=== PATIENT | female | born 1945 | race Caucasian/White ===

== ENCOUNTER → 2017-07-21 | Outpatient (CLI) | payer MEDICARE ==
[~2017-07-21] MED LIST: ALL100 PO; ALLO-119 PO; AMLO-99 PO; ASCO100T PO; ASP325 PO; ASPI-757 PO; ATE50 PO; ATOR40TA24 PO; ATR10 PO; CALC600T63 PO; CALC600T72 PO; CHLOR25 PO; CLON-392 PO; CLON1 PO; DILT360C26 PO; FUR40 PO; GAB100 PO; GAB300 PO; GABA-549 PO; HUMALOG SC; INSU100C12 SQ; INSU100V24 SQ; INSU100V26 SC; INSU300I SUBQ; LISI20TA29 PO; METF-1 PO; METF-420 PO; MULT-865 PO; MULT1CAP41 PO; OCU PO; PER PO; PRA20 PO; PRAV20TA65 PO; QUIN40TA24 PO; SIMV-44 PO; VIT-7 PO; VITA-134 PO; VITA150T2 PO
--- NOTE | 2017-07-24 08:23 | RADIOLOGY IMAGING REPORT ---
FACILITY: [facility] PATIENT NAME: YUNG BATEMAN : [id number] MR: [id number] V: [id number] EXAM DATE: [id number] ORDERING PHYSICIAN: JONATHAN WALKER TECHNOLOGIST: Riya Crum PROCEDURE:BILATERAL DIGITAL SCREENING MAMMOGRAM WITH CAD ASSISTED INTERPRETATION AND 3D BREAST TOMOSYNTHESIS. COMPARISON:Prior mammograms dated 07/08/16, 07/07/15, , 07/02/13, 06/27/12 and 07/26/10 INDICATIONS:SCREENING FINDINGS: A small to moderate amount of mildly heterogeneous fibroglandular tissue is seen throughout the breasts. The parenchymal pattern has remained stable when allowing for difference in mammographic technique and patient positioning. There is no evidence of malignant appearing mass, malignant appearing calcification or other secondary sign of malignancy in either breast. DIAGNOSTIC CATEGORY 2--BENIGN FINDING. RECOMMENDATIONS: ROUTINE MAMMOGRAM AND CLINICAL EVALUATION. IMPRESSION: BI-RADS 2: No significant abnormality seen. Images were reviewed with R2CAD and 3D breast tomosynthesis. Dictated by: Dona Leon M.D. on 07/21/2017 at 10:11 Transcribed by: CYDNEY on 07/21/2017 at 15:47 Approved by: Dona Leon M.D. on 07/24/2017 at 8:22 [facility]
== END ==
LOC: MAMO 03:00
PROVIDERS: ATTEND Emergency Medicine
DX: Z12.31 Encounter for screening mammogram for malignant neoplasm of breast (principal)
CPT/HCPCS: 77063; 77067

== ENCOUNTER → 2017-07-26 | Outpatient (CLI) | payer MEDICARE ==
[~2017-07-26] MED LIST changes: +INSU200I SUBQ
--- NOTE | 2017-07-26 09:38 | RADIOLOGY IMAGING REPORT ---
FACILITY: [facility] [place] PATIENT NAME: Christy Gardner : 1945 MR: [id number] V: [id number] EXAM DATE: ORDERING PHYSICIAN: JONATHAN WALKER TECHNOLOGIST: Location: [facility] Patient: Christy Gardner : 1945 Visit/Account:[id number] Date of Sevice: 07/26/2017 DEXA Scan Clinical history: Postmenopausal. Comparison: None available. LUMBAR SPINE: The bone mineral density (BMD) measured from L1-L4 correlates with a Z-score 3.9 and a T-score of 3.1 which is Normal as defined by the World Health Organization. The corresponding risk of fracture in the lumbar spine is Not increased compared with a young adult reference population. HIP: Bone mineral density (BMD) measured in the Left total hip region correlates with a Z-score 0.9 and a T-score of -0.1 which is Normal as defined by the World Health Organization. The corresponding risk of fracture in the hip is Not increased compared with a young adult reference population. T score l eft femoral neck 1.8 Bone mineral density (BMD) measured in the Femoral Neck region measures 1.292 g/cm2. Left forearm: The bone mineral density measured in the midshaft of the radius is consistent with a Z score of 0.3 a nd a T score of -1.7 which is consistent with osteopenia as defined by the World Health Organization. The corresponding risk of fracture in the left forearm is 3-4 times increased. Impression: 1. Lumbar spine: Normal. 2. Left Hip: Normal. 3. Femoral Neck: Bone Mineral Density is 1.292 g/cm2 4. Left forearm: Osteopenia The next DEXA scan of this patient should include the following sites: L1-L4 and the left hip. FRAX? WHO Fracture Risk Assessment Tool link: <http://www.shef.ac.uk/FRAX/tool.jsp?locationValue=9> PLEASE NOTE: 1) The World Health Organization defines low BMD as follows: T-score Normal > -1 Osteopenia < -1 and > -2.5 Osteoporosis < -2.5 without fractures Established osteoporosis < -2.5 with fractures 2) In general, you may wish to consider: Diagnosis Treatment Follow-up DEXA Normal BMD Prevention 2-3 years Osteopenia Prevention/therapy 1-2 years Osteoporosis Therapy Yearly 3) Fracture risk estimated from the T-score is more accurate for vertebral fractures (often spontane ous) than for hip fractures. Report Dictated By: Dona Leon MD at 07/26/2017 9:33 AM Report E-Signed By: Dona Leon MD at 07/26/2017 9:35 AM MIKKIN:AMICIVN
== END ==
LOC: RAD 01:36
PROVIDERS: ATTEND Emergency Medicine
DX: M85.832 Other specified disorders of bone density and structure, left forearm (principal); Z78.0 Asymptomatic menopausal state
CPT/HCPCS: 77080

== ENCOUNTER → 2017-10-16 | Outpatient (CLI) | payer MEDICARE ==
[2017-10-16 08:54] LABS: PLATELET COUNT, AUTOMATED 213 K/uL (150-450)
[2017-10-16 09:13] LABS: LDL CHOLESTEROL 36 mg/dl
== END ==
LOC: LAB 08:36
PROVIDERS: ATTEND Emergency Medicine
DX: E11.9 Type 2 diabetes mellitus without complications (principal)
CPT/HCPCS: 36415; 82040; 82247; 82310; 82374; 82435; 82465; 82565; 82947; 83036; 83718; 84075; 84132; 84155; 84295; 84450; 84460; 84478; 84520; 85025

== ENCOUNTER → 2018-04-20 | Outpatient (CLI) | payer MEDICARE ==
[~2018-04-20] MED LIST changes: +AMLO-113 PO; -AMLO-99 PO; +METF-452 PO
== END ==
LOC: LAB 09:13
PROVIDERS: ATTEND Emergency Medicine
DX: E11.9 Type 2 diabetes mellitus without complications (principal)
CPT/HCPCS: 36415; 83036

== ENCOUNTER → 2018-04-25 | Outpatient (CLI) | payer MEDICARE ==
[~2018-04-25] MED LIST changes: +DULA0.75 SC; +PNEI IM
== END ==
LOC: LAB 09:38
PROVIDERS: ATTEND Emergency Medicine
DX: G62.9 Polyneuropathy, unspecified (principal); M85.80 Other specified disorders of bone density and structure, unspecified site
CPT/HCPCS: 36415; 82306; 82607; 83970

== ENCOUNTER → 2018-07-20 | Outpatient (CLI) | payer MEDICARE ==
[~2018-07-20] MED LIST changes: -AMLO-113 PO; +AMLO-127 PO; +CYAN500T38 PO
== END ==
LOC: LAB 09:15
PROVIDERS: ATTEND Emergency Medicine
DX: G62.9 Polyneuropathy, unspecified (principal); E11.9 Type 2 diabetes mellitus without complications
CPT/HCPCS: 36415; 82607; 83036

== ENCOUNTER → 2018-08-10 | Outpatient (CLI) | payer MEDICARE ==
--- NOTE | 2018-08-13 18:04 | RADIOLOGY IMAGING REPORT ---
FACILITY: [facility] PATIENT NAME: YUNG BATEMAN : [id number] MR: [id number] V: [id number] EXAM DATE: ORDERING PHYSICIAN: JONATHAN WALKER TECHNOLOGIST: Riya Crum PROCEDURE:BILATERAL DIGITAL SCREENING MAMMOGRAM WITH CAD ASSISTED INTERPRETATION COMPARISON:Prior mammograms 07/21/17, 07/08/16, 07/07/15, 07/04/14, 07/02/13, 06/27/12. INDICATIONS:SCREENING FINDINGS: There are scattered of fibroglandular density in both breast. The parenchymal pattern has remained stable allowing for difference in mammographic technique & patient positioning. DIAGNOSTIC CATEGORY 1--NEGATIVE. RECOMMENDATIONS: ROUTINE MAMMOGRAM AND CLINICAL EVALUATION. IMPRESSION: BIRADS 1: Negative. No significant abnormality is seen. Dictated by: Dona Leon M.D. on 08/10/2018 at 14:28 Transcribed by: MARINA on 08/11/2018 at 12:17 Approved by: Dona Leon M.D. on 08/13/2018 at 18:03 [facility]
== END ==
LOC: MAMO 03:12
PROVIDERS: ATTEND Emergency Medicine
DX: Z12.31 Encounter for screening mammogram for malignant neoplasm of breast (principal)
CPT/HCPCS: 77067

== ENCOUNTER → 2018-08-15 | Outpatient (CLI) | payer MEDICARE ==
[~2018-08-15] MED LIST changes: +SULF-198 PO
[2018-08-15 08:58] LABS: PLATELET COUNT, AUTOMATED 212 K/uL (150-450)
--- NOTE | 2018-08-15 09:14 | EKG ---
FAC[place] [facility] [place] PATIENT NAME: YUNG BATEMAN : [id number] MR: [id number] V: [id number] EXAM DATE: ORDERING PHYSICIAN: TASHA CARVALHO TECHNOLOGIST: MARCI Test Reason : PRE OP Blood Pressure : / mmHG Vent. Rate : 092 BPM Atrial Rate : 092 BPM P-R Int : 202 ms QRS Dur : 068 ms QT Int : 352 ms P-R-T Axes : 110 037 022 degrees QTc Int : 435 ms Sinus rhythm Artifact in multiple leads - recommend repeat EKG Abnormal ECG No previous ECGs available Confirmed by WALESKA CASTANO ([id number]) on 08/15/2018 5:24:45 PM Referred By: MAIA Confirmed By:WALESKA CASTANO
== END ==
LOC: LAB 08:41
PROVIDERS: ATTEND Orthopaedic Surgery
DX: Z01.812 Encounter for preprocedural laboratory examination (principal); Z01.810 Encounter for preprocedural cardiovascular examination; R94.31 Abnormal electrocardiogram [ECG] [EKG]; I10 Essential (primary) hypertension; E78.5 Hyperlipidemia, unspecified; M10.9 Gout, unspecified; E11.9 Type 2 diabetes mellitus without complications
CPT/HCPCS: 36415; 81001; 82040; 82247; 82310; 82374; 82435; 82565; 82947; 84075; 84132; 84155; 84295; 84450; 84460; 84520; 85025; 87088; 93005

== ENCOUNTER → 2018-08-20 | Outpatient (CLI) | payer MEDICARE ==
[~2018-08-20] MED LIST changes: +ASPI81TA94 PO
== END ==
LOC: LAB 10:03
PROVIDERS: ATTEND Emergency Medicine
DX: N39.0 Urinary tract infection, site not specified (principal); R82.998 Other abnormal findings in urine
CPT/HCPCS: 87088

== ENCOUNTER → 2018-08-21 | Outpatient (REF) | payer MEDICARE | LOC: ZZPBJ 12:42 | PROVIDERS: ATTEND Anesthesiology | DX: Z01.812 Encounter for preprocedural laboratory examination (principal); M16.12 Unilateral primary osteoarthritis, left hip | CPT/HCPCS: 81001 ==

== ENCOUNTER 2018-08-28 03:53 | Inpatient (IN) | payer MEDICARE ==
--- NOTE | 2018-08-27 10:13 | LEVENE H&P ---
DATE OF ADMISSION: August 28, 2018 IDENTIFICATION/CHIEF COMPLAINT Patient is a 72--year-old with a chief complaint of left hip pain. HISTORY OF PRESENT ILLNESS Patient has a longstanding history of hip arthritis progressively painful and debilitating and refractor to conservative care. Surgery is indicated to relieve pain after failure of nonoperative measures. PAST MEDICAL HISTORY 1. Hypertension. 2. Type 2 diabetes. 3. Arthritis. 4. Back problems. PAST SURGICAL HISTORY Back operation. FAMILY HISTORY Father and mother with cardiac and diabetes issues. SOCIAL HISTORY Negative for tobacco and alcohol use. REVIEW OF SYSTEMS Negative. CURRENT MEDICATIONS 1. Atorvastatin 40 mg p.o. q.d. 2. Allopurinol 300 mg p.o. q.d. 3. Lisinopril 20 mg p.o. q.d. 4. Chlorthalidone 25 mg p.o. q.d. 5. Clonidine 0.1 mg p.o. b.i.d. 6. Gabapentin 300 mg p.o. q.d. 7. Amlodipine 10 mg p.o. q.d. 8. Metformin 1000 mg p.o. b.i.d. 9. Variety of vitamins and baby aspirin a day. 10. Occasionally, she also requires insulin to manage blood sugar. ALLERGIES She denies any drug allergies. PHYSICAL EXAMINATION GENERAL: This is a healthy female. HEENT: Normocephalic, atraumatic. NECK: Supple. LUNGS: Clear. HEART: Regular ABDOMEN: Soft. ORTHOPEDIC EXAMINATION Hips is stiff with limits of rotation in flexion. She has pain with combined flexion and rotation. Hip girdle strength is normal. Skin envelope is intact. Calves are nontender. Neurovascularly intact. Radiographs demonstrate end- stage arthritis. ASSESSMENT Left hip degenerative joint disease, refractory to conservative care. PLAN Per patient request, we will proceed with total hip arthroplasty. The nature of the procedure, risks, benefits and anticipated rehab course were outlined. Risks include, but are not limited to, , major medical or anesthetic complication, infection, neurovascular injury, blood transfusion, stiffness, scarring, fracture, tendon rupture, instability, leg length discrepancy, implant loosening, migration or failure, persistent or recurrent pain or symptoms, need for additional surgery and other unforeseen. She understands and wishes to proceed. A signed permit is placed in the chart. No guarantees are given or implied. [facility]
[2018-08-27 14:51] LABS: INR 1.02
[~2018-08-28] VITALS: Ht 170.2 cm; Wt 86.2 kg
[2018-08-28] MEDS ORDERED: VANCOMYCIN 1 GM VIAL ONE (06:49)
[2018-08-28 10:50] VITALS: BP 151/76
[2018-08-28] MEDS ORDERED: ceFAZolin(*) 2GM/D5W 50ML 50 ML IVPB ONE (11:15)
[2018-08-28] MEDS ORDERED: FAMOTIDINE 20 MG TAB PO ONE (11:15)
[2018-08-28] MEDS ORDERED: ROPIVACAINE/EPI/CLONIDINE/KET 50 ML SYRINGE INJ ONE (11:15)
[2018-08-28] MEDS ORDERED: ACETAMINOPHEN 500 MG TAB PO ONE (11:15)
[2018-08-28] MEDS ORDERED: CELECOXIB 200 MG CAP PO ONE (11:15)
[2018-08-28] MEDS ORDERED: TRANEXAMIC AC 1000 MG/10ML SDV 1,000 MG in DEXTROSE 5% 50 ML BAG 50 ML IV ONE (11:15)
[2018-08-28] MEDS ORDERED: NORMOSOL R SOLN(*) 1000 ML BAG 1,000 ML IV PRN ×2 (11:15→18:45)
[2018-08-28] MEDS ORDERED: LIDOCAINE/SOD BICARB 8.4% SYR ID ONE (11:15)
[2018-08-28] MEDS ORDERED: MIDAZOLAM 2 MG/2 ML VIAL IVP PRN (11:15)
[2018-08-28] MEDS ORDERED: NS 0.9% 3000 ML IRRIGATION BAG IR ONE (16:07)
[2018-08-28] MEDS ORDERED: MEPERIDINE HCL 50 MG/ML SDV 50 MG/ML VIAL ONE (17:56)
[2018-08-28 18:25] VITALS: BP 145/82
--- NOTE | 2018-08-28 18:28 | RADIOLOGY IMAGING REPORT ---
FACILITY: [facility] PATIENT NAME: Christy Gardner : 1945 MR: [id number] V: [id number] EXAM DATE: ORDERING PHYSICIAN: TASHA CARVALHO TECHNOLOGIST: Location: [facility] [place] Patient: Christy Gardner : 1945 Visit/Account:[id number] Date of Sevice: 08/28/2018 PELVIS History: Postop left hip replacement. Comparison study: None. Findings: There has been placement of a left hip prosthesis. Subcutaneous and intra-articular air a s well as surgical skin clips represent changes of recent surgery. There is no fracture the pelvis. There is osteoarthrosis of the right hip. IMPRESSION: Post recent left total hip replacement. 2. Osteoarthrosis of the right hip. Report Dictated By: Horace Rowe MD at 08/28/2018 6:22 PM Report E-Signed By: Horace Rowe MD at 08/28/2018 6:23 PM WSN:[email or web address]
[2018-08-28] MEDS ORDERED: PROMETHAZINE 25 MG/ML 1 ML AMP IVP PRN (18:45)
[2018-08-28] MEDS ORDERED: ZOLPIDEM TARTRATE 5 MG TAB PO PRN (18:45)
[2018-08-28] MEDS ORDERED: BISACODYL 10 MG SUPP PR PRN (18:45)
[2018-08-28] MEDS ORDERED: FLUSH 10 ML SYR IVP PRN (18:45)
[2018-08-28] MEDS ORDERED: diphenhydrAMINE 25 MG CAP PO PRN (18:45)
[2018-08-28] MEDS ORDERED: DIAZEPAM 5 MG TAB PO PRN (18:45)
[2018-08-28] MEDS ORDERED: BENZOCAINE/MENTHOL 1 EACH LOZG PO PRN (18:45)
[2018-08-28] MEDS ORDERED: ACETAMINOPHEN 325 MG TAB PO PRN (18:45)
[2018-08-28] MEDS ORDERED: MAGNESIUM HYDROXIDE* 30ML UDCP PO PRN (18:45)
[2018-08-28] MEDS ORDERED: diphenhydrAMINE 50 MG/ML VIAL IVP PRN (18:45)
[2018-08-28 19:45] VITALS: BP 150/75
--- NOTE | 2018-08-28 19:53 | OPERATIVE REPORT 1 ---
EVENT DATE: August 28, 2018 SURGEON: Dejan Smith MD ANESTHESIOLOGIST: Reilly Garg MD ANESTHESIA: General plus spinal. CHILDCARE TEACHER: NAZ Preciado PREOPERATIVE DIAGNOSIS Left hip degenerative joint disease. POSTOPERATIVE DIAGNOSIS Left hip degenerative joint disease. PROCEDURE PERFORMED Left total hip arthroplasty. ESTIMATED BLOOD LOSS 300 mL DRAINS None. SPECIMENS None. COMPLICATIONS None apparent. IMPLANTS USED [place] system with an Accolade 227-degree neck angle, stem size 7, with an anatomic V40 femoral head, 36 mm diameter plus 10 neck length chrome cobalt, a Trident X3, zero-degree eccentric insert with a Trident PSL STOLL cluster acetabular shell 54 mm. INDICATIONS Christy is a 72-year-old woman with intractable pain and disability related to end-stage hip arthritis. Surgery is indicated to relieve symptoms after failure of nonoperative measures. DESCRIPTION OF PROCEDURE Patient is taken to the operating room and placed supine on the operating table. General anesthesia is induced. Antibiotics are administered IV. Spinal block is placed preoperatively by the anesthesiologist. She is positioned in the right lateral decubitus on a well-padded pegboard. Pelvis is secured in a vertical position. All bony prominences and superficial nerves are well padded, and the left hip girdle and lower extremity are prepped and draped free in the usual sterile fashion for hip arthroplasty. A small incision posterolateral approach is made, carried down through the skin and subcutaneous tissue down to the deep fascia. Fascia is incised over the tip of the trochanter, extended distally in line with the femur, proximally in line with the joshua fibers. Joshua fibers are split bluntly. Trochanteric bursa is excised. Interval between the abductor and external rotator is identified. Abductor mechanism is protected with a blunt Hohmann. An L capsulotomy/tenotomy is performed with the horizontal limb above the piriformis. Piriformis, external rotators, and the capsule are released off the posterior femur, tagged with #2 Vicryl for later reattachment. The femoral head is dislocated. End-stage arthritis is noted. A 1.5 cm neck cut is made consistent with preoperative templating. Femoral head is extracted. Femur is translocated anteriorly. Danielle-acetabular retractors are placed with the tips down on bone. Labrum and pulvinar are excised. A 44 mm reamer is used to medialize through the true medial wall of the acetabulum. This is expanded in 2 mm increments up to 54 where nice rim contact is obtained. The 54 trial has nice fit. The 55 is used to open the floor of the acetabulum. The actual shell is impacted in approximately 45 degrees of lateral opening and 15 degrees of anteversion using the extracorporeal guide, internal bony landmarks, and the transverse acetabular ligament to guide socket placement. Rock-solid fixation is achieved. No adjuvant fixation is felt to be needed. Initially, the standard offset liner is placed. Next, attention is turned to femoral preparation. The superior neck is resected with a Laiyaoyao cutter. A Nevaeh awl finds the canal. Tapered broaching is performed up to size 7 where nice fit and fill are achieved. At this point, a trial reduction is performed with various neck lengths and angles. It is difficult to achieve stability. The version of the cup and the anteversion of the femoral component checked again. Both appear to be ideal. Anteversion of the femoral component is about 12 degrees, consistent with the angle of the calcar. At this point, attempts are made to remove any soft tissue impingement by thinning the superior capsule and resecting some additional anterior wall anterosuperior that may impinge on the neck. Care is taken to make sure all of the osteophytes are carefully removed, and there is no prominence or bump on the anterior aspect of the trochanter. In spite of this, there is difficulty achieving great stability even at longer neck lengths, so the next step is to remove the old liner and replace it with a cement offset liner. This is done without difficulty, and then reductions with various neck angles and lengths were performed again, and the 127, plus 10 provides optimal caodaism and stability at 90/90 position. Internal rotation is to about 60 before the hip begins to impinge and sublux. With this combination, the patient's limb length appears by gross clinical measurement to have been lengthened roughly 10 to 12 mm. Nevertheless, I feel that it is better to lengthen her than to accept a potentially grossly unstable hip, and again the components are properly oriented. At this point, the wounds are lavaged, broaches removed. The actual stem is seated and trial reduction performed again. The same combination is selected with the 127 angle on the component and the +2 chrome cobalt head. Nava taper is lavaged and dried. The actual head is impacted and positioned. Joint is reduced. Drill holes are created in the posterolateral femur to reattach the external rotators and the capsule, and then the deep fascia closed with #2 Ethibond distally, #2 Vicryl proximally. Subcutaneous tissue is lavaged. Hemostasis is assured. Derm is closed with 3-0 Vicryl, skin with surgical donna. Xeroform is applied as a dry, sterile dressing and a hip wrap. Patient is rolled supine. Abduction pillow is placed. She is awakened from anesthesia and taken to the recovery room in stable condition having tolerated the procedure well. PLAN Standard [facility] rehab protocol, weightbearing as tolerated, posterior hip precautions. MTDD
[2018-08-28] MEDS: APAP/HYDROCODONE 325/7.5 TAB PO PRN (20:09)
[2018-08-28] MEDS ORDERED: INSULIN HUM LISPRO 100 UN/ML 3 ML VIAL SUBQ PRN (20:45)
[2018-08-28] MEDS: cloNIDine HCL 0.1 MG TAB PO SCH (21:00)
--- NOTE | 2018-08-28 21:15 | Hospitalist Progress Note ---
Subjective Progress Notes Subjective No cp/sob. 2100cc crystalloid, TXA and dexamethasone intra-op. Physical Exam Vital Signs Date Time Temp Pulse Resp B/P (MAP) Pulse Ox O2 Delivery O2 Flow Rate FiO2 08/28/18 18:25 97.8 89 16 145/82 (103) 99 Nasal Cannula 2.0 General Appearance: Alert, Awake, No Acute Distress Cardiovascular: Regular Rate and Rhythm Respiratory: Clear to Auscultation Extremities: No Edema Assessment and Plan Problems: (1) Status post hip replacement Status: Acute Assessment & Plan: No CV/pulmonary issues. The patient denies a h/o DVT/PE, so will give ASA 325mg a day for 30 days for DVT prophylaxis. (2) Insulin-requiring or dependent type II diabetes mellitus Status: Chronic Assessment & Plan: Chronically on Toujeo 16 units HS and 14 units AM with Lispro 30/24/48 before meals, respectively. Will start with Lantus 10 units bid and Lispro 5/5/5 before meals with SSI level 2. (3) Hypertension Status: Chronic Assessment & Plan: Continue chronic chlorthalidone, clonidine, lisinopril, and amlodipine with parameters. (4) Hyperlipidemia Status: Chronic Assessment & Plan: Continue chronic atorvastatin. (5) Gout Status: Chronic Assessment & Plan: Continue chronic allopurinol. (6) Peripheral neuropathy Status: Chronic Assessment & Plan: Continue chronic gabapentin. (7) History of UTI Status: Chronic Assessment & Plan: About a week ago she was treated with 3 days of Bactrim for an asymptomatic UTI growing Klebsiella pneumonia. Repeat UA was wnl. Problem Qualifiers (1) Status post hip replacement: Laterality: left Qualified Codes: Z96.642 - Presence of left artificial hip joint KAYLA ROBERTS MD Aug 28, 2018 21:15
[2018-08-28] MEDS: GABAPENTIN 300 MG CAP PO SCH (21:36)
[2018-08-28] MEDS: INSULIN GLARGINE 100 U/ML 3 ML PEN SUBQ SCH (21:37)
[2018-08-28 22:00] VITALS: BP 118/60
[2018-08-28 23:09] VITALS: BP 138/65
[2018-08-29] MEDS: ceFAZolin(*) 1 GM VIAL 1 GM in NS(*) 0.9% 100 ML ADDVANT BAG 100 ML IV SCH ×3 (00:16→16:36)
[2018-08-29 02:52] VITALS: BP 136/72
[2018-08-29 06:36] VITALS: BP 129/69
[2018-08-29] MEDS ORDERED: NS(*) 0.9% 250 ML BAG 250 ML ONE (07:20)
[2018-08-29 08:03] VITALS: BP 158/76
[2018-08-29] MEDS: CELECOXIB 200 MG CAP PO SCH ×2 (08:25→16:36)
[2018-08-29] MEDS: ATORVASTATIN 10 MG TAB PO SCH (08:25)
[2018-08-29] MEDS: ASPIRIN 325 MG TAB PO SCH (08:26)
[2018-08-29] MEDS: LISINOPRIL 20 MG TAB PO SCH (08:26)
[2018-08-29] MEDS: cloNIDine HCL 0.1 MG TAB PO SCH ×2 (08:26→20:59)
[2018-08-29] MEDS: ALLOPURINOL 300 MG TAB PO SCH (08:26)
[2018-08-29] MEDS: amLODIPine BESYL(*) 5 MG TAB PO SCH (08:26)
[2018-08-29] MEDS: INSULIN HUM LISPRO 100 UN/ML 3 ML VIAL SUBQ SCH ×3 (08:27→16:38)
[2018-08-29] MEDS: CHLORTHALIDONE 25 MG TAB PO SCH (08:35)
[2018-08-29] MEDS: INSULIN GLARGINE 100 U/ML 3 ML PEN SUBQ SCH ×2 (08:36→21:00)
[2018-08-29] MEDS: APAP/HYDROCODONE 325/7.5 TAB PO PRN ×2 (08:36→18:01)
--- NOTE | 2018-08-29 10:07 | Hospitalist Progress Note ---
Subjective Progress Notes Subjective She was admitted s/p hip replacement. She has no complaints this morning. She had no acute events overnight. Patient Complains of: Cardiovascular: No: Chest Pain Respiratory: No: Shortness of Breath Physical Exam Vital Signs Date Time Temp Pulse Resp B/P (MAP) Pulse Ox O2 Delivery O2 Flow Rate FiO2 08/29/18 08:03 99.1 98 16 158/76 (103) 92 Room Air 08/29/18 06:36 0.5 Intake and Output 08/29/18 07:00 Intake Total 4900 ml Output Total 20 ml Balance 4880 ml Intake Oral 300 ml IV Total 2500 ml Other 2100 ml Output Estimated Blood Loss 20 ml # Voids 3 General Appearance: Alert, Awake, No Acute Distress, Afebrile Neuro: No Gross deficits Cardiovascular: Regular Rate and Rhythm Respiratory: No Respiratory Distress, Clear to Auscultation Psych: Alert & Oriented X3, Appropriate Mood & Affect Assessment and Plan Problems: (1) Status post hip replacement Status: Acute Assessment & Plan: No CV/pulmonary issues. The patient denies a h/o DVT/PE, so will give ASA 325mg a day for 30 days for DVT prophylaxis. (2) Insulin-requiring or dependent type II diabetes mellitus Status: Chronic Assessment & Plan: Chronically on Toujeo 16 units HS and 14 units AM with Lispro 30/24/48 before meals, respectively. Will start with Lantus 10 units bid and Lispro 5/5/5 before meals with SSI level 3. (3) Hypertension Status: Chronic Assessment & Plan: Continue chronic chlorthalidone, clonidine, lisinopril, and amlodipine with parameters. (4) Hyperlipidemia Status: Chronic Assessment & Plan: Continue chronic atorvastatin. (5) Gout Status: Chronic Assessment & Plan: Continue chronic allopurinol. (6) Peripheral neuropathy Status: Chronic Assessment & Plan: Continue chronic gabapentin. (7) History of UTI Status: Chronic Assessment & Plan: About a week ago she was treated with 3 days of Bactrim for an asymptomatic UTI growing Klebsiella pneumonia. Repeat UA was wnl. Exam Sepsis Risk: No Definite Risk Problem Qualifiers (1) Status post hip replacement: Laterality: left Qualified Codes: Z96.642 - Presence of left artificial hip joint DORETHA SCHWARZ CONSIGNEE Aug 29, 2018 10:07
[2018-08-29 11:21] VITALS: BP 103/48
[2018-08-29] MEDS: INSULIN HUM LISPRO 100 UN/ML 3 ML VIAL SUBQ PRN ×3 (12:39→21:02)
[2018-08-29 12:52] VITALS: Ht 170.2 cm; Wt 86.2 kg
[2018-08-29 20:45] VITALS: BP 137/66
[2018-08-29] MEDS: GABAPENTIN 300 MG CAP PO SCH (20:59)
[2018-08-29 23:03] VITALS: BP 131/68
[2018-08-30 03:01] VITALS: BP 121/65
[2018-08-30] MEDS: APAP/HYDROCODONE 325/7.5 TAB PO PRN (05:12)
[2018-08-30 07:15] VITALS: BP 108/58
[2018-08-30] MEDS: INSULIN HUM LISPRO 100 UN/ML 3 ML VIAL SUBQ SCH ×3 (07:23→16:38)
[2018-08-30] MEDS: CELECOXIB 200 MG CAP PO SCH ×2 (07:23→16:37)
[2018-08-30] MEDS: INSULIN HUM LISPRO 100 UN/ML 3 ML VIAL SUBQ PRN ×4 (07:25→20:24)
[2018-08-30] MEDS: amLODIPine BESYL(*) 5 MG TAB PO SCH (08:28)
[2018-08-30] MEDS: LISINOPRIL 20 MG TAB PO SCH (08:28)
[2018-08-30] MEDS: ALLOPURINOL 300 MG TAB PO SCH (08:29)
[2018-08-30] MEDS: ASPIRIN 325 MG TAB PO SCH (08:29)
[2018-08-30] MEDS: ATORVASTATIN 10 MG TAB PO SCH (08:29)
[2018-08-30] MEDS: cloNIDine HCL 0.1 MG TAB PO SCH ×2 (08:31→20:22)
[2018-08-30] MEDS: INSULIN GLARGINE 100 U/ML 3 ML PEN SUBQ SCH ×2 (08:34→20:22)
[2018-08-30] MEDS: CHLORTHALIDONE 25 MG TAB PO SCH (09:00)
--- NOTE | 2018-08-30 10:11 | Hospitalist Progress Note ---
Subjective Progress Notes Subjective She was admitted after hip replacement. She has no complaints this morning. She had no acute events overnight. Patient Complains of: Cardiovascular: No: Chest Pain Respiratory: No: Shortness of Breath Physical Exam Vital Signs Date Time Temp Pulse Resp B/P (MAP) Pulse Ox O2 Delivery O2 Flow Rate FiO2 08/30/18 07:15 98.5 79 16 108/58 (75) 96 Nasal Cannula 1.0 Intake and Output 08/30/18 06:59 Intake Total 800 ml Balance 800 ml Intake Oral 800 ml # Voids 4 General Appearance: Alert, Awake, No Acute Distress, Afebrile Neuro: No Gross deficits Cardiovascular: Regular Rate and Rhythm Respiratory: No Respiratory Distress, Clear to Auscultation GI: Soft and Non-Tender Psych: Alert & Oriented X3, Appropriate Mood & Affect Assessment and Plan Problems: (1) Status post hip replacement Status: Acute Assessment & Plan: No CV/pulmonary issues. The patient denies a h/o DVT/PE, so will give ASA 325mg a day for 30 days for DVT prophylaxis. She plans to [facility] to [facility] tomorrow. (2) Insulin-requiring or dependent type II diabetes mellitus Status: Chronic Assessment & Plan: Chronically on Toujeo 16 units HS and 14 units AM with Lispro 30/24/48 before meals, respectively. Will start with Lantus 10 units bid and Lispro 5/5/5 before meals with SSI level 3. (3) Hypertension Status: Chronic Assessment & Plan: Continue chronic chlorthalidone, clonidine, lisinopril, and amlodipine with parameters. (4) Hyperlipidemia Status: Chronic Assessment & Plan: Continue chronic atorvastatin. (5) Gout Status: Chronic Assessment & Plan: Continue chronic allopurinol. (6) Peripheral neuropathy Status: Chronic Assessment & Plan: Continue chronic gabapentin. (7) History of UTI Status: Chronic Assessment & Plan: About a week ago she was treated with 3 days of Bactrim for an asymptomatic UTI growing Klebsiella pneumonia. Repeat UA was wnl. Exam Sepsis Risk: No Definite Risk Problem Qualifiers (1) Status post hip replacement: Laterality: left Qualified Codes: Z96.642 - Presence of left artificial hip joint DORETHA SCHWARZ [facility] Aug 30, 2018 10:11
[2018-08-30 11:10] VITALS: BP 133/67
[2018-08-30 15:50] VITALS: BP 130/64
[2018-08-30 19:37] VITALS: BP 148/65
[2018-08-30] MEDS: GABAPENTIN 300 MG CAP PO SCH (20:22)
[2018-08-30 22:25] VITALS: BP 118/70
[2018-08-31 03:08] VITALS: BP 138/66
--- NOTE | 2018-08-31 07:33 | Hospitalist Progress Note ---
Subjective Progress Notes Subjective Doing well with PT and is ready to go to [facility]CF. On ASA for anticoagulation. Physical Exam Vital Signs Date Time Temp Pulse Resp B/P (MAP) Pulse Ox O2 Delivery O2 Flow Rate FiO2 08/31/18 06:36 83 08/31/18 03:08 98.3 94 18 138/66 (90) Nasal Cannula 1.0 Intake and Output 08/31/18 07:00 Intake Total 846 ml Balance 846 ml Intake Oral 846 ml # Voids 9 # Bowel Movements 2 General Appearance: Alert, Awake, No Acute Distress, Afebrile Cardiovascular: Regular Rate and Rhythm, Other (S1S2 are normal with short grade 1/6 systolic murmur at LSB.) GI: Soft and Non-Tender Extremities: Soft and Non Tender, Warm, Pulses, Perfused Psych: Alert & Oriented X3, Appropriate Mood & Affect Assessment and Plan Problems: (1) Status post hip replacement Status: Acute Assessment & Plan: No CV/pulmonary issues. The patient denies a h/o DVT/PE and is on ASA 325mg a day for 30 days for DVT prophylaxis. To ECF today. (2) Insulin-requiring or dependent type II diabetes mellitus Status: Chronic Assessment & Plan: Chronically on Toujeo 16 units HS and 14 units AM with Lispro 30/24/48 before meals, respectively. On Lantus 10 units bid and Lispro 5/5/5 before meals with SSI level 3. (3) Hypertension Status: Chronic Assessment & Plan: Continue chronic chlorthalidone, clonidine, lisinopril, and amlodipine with parameters. He BP has been well controlled with her meds and will continue as is. (4) Hyperlipidemia Status: Chronic Assessment & Plan: Continue chronic atorvastatin. (5) Gout Status: Chronic Assessment & Plan: Continue chronic allopurinol. (6) Peripheral neuropathy Status: Chronic Assessment & Plan: Continue chronic gabapentin. (7) History of UTI Status: Chronic Assessment & Plan: About a week ago she was treated with 3 days of Bactrim for an asymptomatic UTI growing Klebsiella pneumonia. Repeat UA was wnl. Time Spent on Plan of Care: > 30 min Copies to: JONATHAN WALKER MD ; Exam Sepsis Risk: No Definite Risk Problem Qualifiers (1) Status post hip replacement: Laterality: left Qualified Codes: Z96.642 - Presence of left artificial hip joint ELMER CHOUDHURY MD FACP Aug 31, 2018 07:33
[2018-08-31 07:52] VITALS: BP 151/71
[2018-08-31] MEDS: INSULIN GLARGINE 100 U/ML 3 ML PEN SUBQ SCH (08:19)
[2018-08-31] MEDS: CHLORTHALIDONE 25 MG TAB PO SCH (08:20)
[2018-08-31] MEDS: INSULIN HUM LISPRO 100 UN/ML 3 ML VIAL SUBQ SCH (08:20)
[2018-08-31] MEDS: INSULIN HUM LISPRO 100 UN/ML 3 ML VIAL SUBQ PRN (08:20)
[2018-08-31] MEDS: amLODIPine BESYL(*) 5 MG TAB PO SCH (08:21)
[2018-08-31] MEDS: ALLOPURINOL 300 MG TAB PO SCH (08:21)
[2018-08-31] MEDS: ATORVASTATIN 10 MG TAB PO SCH (08:21)
[2018-08-31] MEDS: cloNIDine HCL 0.1 MG TAB PO SCH (08:21)
[2018-08-31] MEDS: ASPIRIN 325 MG TAB PO SCH (08:21)
[2018-08-31] MEDS: CELECOXIB 200 MG CAP PO SCH (08:21)
[2018-08-31] MEDS: LISINOPRIL 20 MG TAB PO SCH (08:21)
[2018-08-31] MEDS ORDERED: DOCUSATE SODIUM 100 MG CAP PO SCH (09:00)
[2018-08-31] MEDS ORDERED: POLYETHYLENE GLYCOL 17 GM PKT PO SCH (09:00)
== END 2018-08-31 10:20 | DRG 470 ==
LOC: OR 03:53 → MED 18:25
PROVIDERS: ADMIT Orthopaedic Surgery; ATTEND Orthopaedic Surgery
PROC: 0SRB04A Replacement of Left Hip Joint with Ceramic on Polyethylene Synthetic Substitute, Uncemented, Open Approach (ICD-10-PCS; principal; 2018-08-28 15:01)
DX: M16.12 Unilateral primary osteoarthritis, left hip (principal); I10 Essential (primary) hypertension; E11.42 Type 2 diabetes mellitus with diabetic polyneuropathy; M1A.9XX0 Chronic gout, unspecified, without tophus (tophi); Z79.84 Long term (current) use of oral hypoglycemic drugs; E78.5 Hyperlipidemia, unspecified; Z79.4 Long term (current) use of insulin; H35.30 Unspecified macular degeneration
CPT/HCPCS: 36416; 72170; 76942; 82948; 85610; 86850; 86900; 86901; 97161; C1776; J0690; J1815; J2175; J2250; J3370; J7050; J7060

== ENCOUNTER 2018-08-31 10:21 | Inpatient (IN) | payer MEDICARE ==
[2018-08-29 12:52] VITALS: Ht 170.2 cm; Wt 86.2 kg
[~2018-08-31] VITALS: Ht 170.2 cm; Wt 86.2 kg
[2018-08-31] MEDS ORDERED: ZOLPIDEM TARTRATE 5 MG TAB PO PRN (10:46)
[2018-08-31] MEDS ORDERED: MAGNESIUM HYDROXIDE* 30ML UDCP PO PRN (10:46)
[2018-08-31] MEDS ORDERED: APAP/HYDROCODONE 325/7.5 TAB PO PRN (10:46)
--- NOTE | 2018-08-31 11:26 | Consultant Pharmacy Review ---
Truck Packer Review Medication Review Do All Mecications have a Diag: Yes Beers Criteria Medication 2014 Central Alpha Blockers: Clonidine (HX OF HTN - MULTI DRUG REGIMEN) Sliding Scale Insulin: Slidin Scale Insulin (DM2) Drugs to Use With Caution ASA for Primary Prevent. Pneumococcal Vaccine HX Pneumo Vac (Ozbrdow90): Yes (2017) HX Pneumo Vac (Pneumovax): Yes (2018) Comments Regarding the Review Patient is taking several antihypertensives as well as several PILOT PLANT RESEARCH TECHNICIAN depressing medications for pain and neuropathy. This greatly increased her fall risk and she should be monitored closely for symptoms of excessive PILOT PLANT RESEARCH TECHNICIAN depression. Notified? Notified?: No AJ GRULLON Aug 31, 2018 11:26
[2018-08-31 11:45] VITALS: BP 113/59
--- NOTE | 2018-08-31 12:02 | OT ECF NOTE ---
Type of Note: Initial Note Primary Medical Diagnosis: Generalized weakness s/p L) ARIS. DOS: 08/28/[address] Smith *WBAT, Posterior hip precautions* Pt able to recall 08/19 posterior hip precautions. Occupational Therapy Evaluation Date: 08/31/18 SUBJECTIVE: [facility] 08[facility]18 Prior Level of Function: Independent with all ADLs/IADLs (driving, caring for dog) Prior Living Status: Mobile home Alone Assist by family Community Services: Support adequate No known needs Home Accessibility: Stairs with rails All needs on one level Walk-in shower Equipment Owned: Front wheeled walker Cane Toilet riser Electric Recliner Protective Signal Installer Medical Complications/Past Medical History: HTN, Type 2 DM, arthritis, hx gout, neuropathy, hx UTI. Please refer to EMR for further details. Psychosocial Support: Supportive sisters who reside in [place] Pain Scale (0-10): None reported at time of evaluation OBJECTIVE: Strength: MMT: Right Left Shoulder Flexion WFL WFL Elbow Flexion WFL WFL Wrist Extension WFL WFL Family Literacy Coordinator WFL WFL (5= normal, 4= good, 3= fair, 2= poor, 1= trace) ROM: Both upper extremities, WFL Sensation: Hx of neuropathy Functional Transfer: Assistive Device: Standard walker, Gait belt Transfer Ability: CGA ADL: Upper body dressing: Assistive device: Upper body dressing ability: N/T Lower body dressing: Assistive device: Will benefit from LB AE education. May benefit from information for where to obtain a sock aid. Lower body dressing ability: Maximum assistance Toileting: Assistive device: Toileting ability: N/T Grooming/hygiene: Assistive device: Grooming ability: N/T Bathing: Assistive device: Bathing ability: N/T Standardized Assessment: Mackenzie Index of Activities of Daily Livin/20 upon initial evaluation (08/31/18). ASSESSMENT: Christy presents to [facility] requiring assist for ADLs/IADLs s/p L) ARIS. At [facility], she was independent with all ADLs/IADLs and resides alone. She will benefit from skilled OT services to receive education for adherence to posterior hip precautions, improve activity tolerance, and optimize independence with ADLs/IADLs. Problem List/Current Limitations: Pain Decreased activity tolerance Decreased ROM Generalized weakness Short Term Goals: 1) Pt will be Mod (I) UB/LB dressing. 2) Pt will be Mod (I) toilet task. 3) Pt will be Mod (I) grooming/hygiene. 4) Pt will be Mod (I) shower task. 5) Pt will be Mod (I) light meal prep. 6) Pt Mackenzie Index of ADLs will improve by 2 points. Manufacturing Test Technician Goals: Return home with possible HH Patient Goals: Be confident with completing ADLs with adherence to posterior hip precautions Rehabilitation Prognosis: Good Barriers to Discharge: None identified PLAN: The patient will benefit from skilled occupational therapy services 5 times per week for 2 weeks including: Ther ex ADL training Safety training Ther act IADL training Transfer training Adaptive equip training Bed mobility Energy conservation Thank you for this referral. If you have any questions, concerns, or comments about this report or plan, please contact me at . Ofelia Schwab MS, OTR/L Occupational Therapist [place]
[2018-08-31] MEDS: INSULIN HUM LISPRO 100 UN/ML 3 ML VIAL SUBQ SCH ×2 (12:11→16:44)
[2018-08-31] MEDS: INSULIN HUM LISPRO 100 UN/ML 3 ML VIAL SUBQ PRN ×3 (12:13→20:43)
--- NOTE | 2018-08-31 15:19 | Medical Nutrition Therapy ---
Nutrition Anthropometrics Height (Inches): 67.00 Height (Calculated Centimeters: 170.139712 Weight (Pounds): 190 Weight (Calculated Kilograms): 86.183 BMI: 29.8 Jose D Nutrition Score: Jose D Nutrition Risk Score: Dietary Referral Nutrition Risk Factors: Nutrition Risk Comment: Physical Findings Physical Appearance: Overweight BMI 25-29 Skin Appearance Skin Appearance: Edema Edema Location Modifier: Edema Location: Type of Edema: Degree of Edema: Gastrointestinal Symptoms GI Symtoms: Tube Present: Bowel Sounds: Recent Bowel Pattern: Stool Characteristics: Nutritional Diagnosis Nutritional Risk Acuity 4: Good Appetite, Modified Diet Past Medical History: T2DM Nutritional Acuity: 4-Low Adjusted Energy Requirement Re: 1700 (H-B adj for obesity x 1.1 SF) Protein Requirement: 77 (.9gm/kg) Fluid Requirement: 2150 (25ml/kg) Diet Type: Diabetic Nutrition Intervention: Cont diet as ordered, Encourage intake, HS snack Drug: Diuretics Drug/Nutrition Recommendations: Check Serum K+ Nutrition Monitoring & Eval RD Patient Assessment Time: [address] Assessment Type: RD Assessment Patient Nutrition Acuity: 4-Low Follow Up Date: Sep 04, 2018 Nutritional Comment: 08/31 Pt admited s/p hip replacement. Pt on diabetic diet and eating 75-100%. RBG 211. Pt on K+ depleting diuretic. Recommend check K+ blood levels. Will cont to monitor and encourage intake. KLAUDIA SHARMA Aug 31, 2018 15:19
[2018-08-31 16:10] VITALS: BP 121/69
--- NOTE | 2018-08-31 16:14 | NUR ---
Physical Therapy Impression PT eval complete. Please see EMR Other Reports for details. Physical Therapy Goals 1. Mod I bed mobility. 2. Mod I transfers. 3. Mod I gait x 500' with RW. 4. Ascend/descend 3 stairs with rails Mod I. 5. Independent with hip precautions. 6. Improve TUG by 2 seconds to <52 seconds. Patient's Goals
--- NOTE | 2018-08-31 16:19 | PT ECF NOTE ---
Type of Note: Initial Note Primary Medical Diagnosis: s/p L ARIS 08/28/18 Physical Therapy Evaluation Date: 08/31/18 SUBJECTIVE: Prior Hospitalization: H for L ARIS Prior Level of Function: I/Mod I with functional mobility Prior Living Status: Mobile home, Alone, Assist by family Community Services: Support adequate, No known needs Home Accessibility: 3 Stairs with rails, All needs on one level, Walk-in shower Equipment Owned: Front wheeled walker, Cane, Toilet riser Medical Complications/Past Medical History: See [employer] Psychosocial Support: Supportive sisters who live locally Pain Scale (0-10): Pt reports no pain at this time OBJECTIVE: Bed Mobility: SBA supine>sit Assistive device: Bed rail, Head of bed elevated Transfers: SBA Assistive Device: Front wheeled walker Gait: SBA x 200' Assistive device: Front wheeled walker Timed Up and Go (>12 seconds indicated increased risk for falls): 54 seconds ASSESSMENT: Pt presents with decreased independence with functional mobility compared to prior level of function. Pt will benefit from skilled PT for functional mobility training in order to return to prior level of function. Problem List/Current Limitations: Pain, Decreased activity tolerance, Decreased strength, Decreased ROM, Generalized weakness Short Term Goals: 1. Mod I bed mobility. 2. Mod I transfers. 3. Mod I gait x 500' with RW. 4. Ascend/descend 3 stairs with rails Mod I. 5. Independent with hip precautions. 6. Improve TUG by 2 seconds to <52 seconds. Manager Training And Development Goals: Return home Patient Goals: Return home Rehabilitation Prognosis: Good Barriers for Discharge: none identified PLAN: The patient will benefit from skilled physical therapy services 5 times per week for 2 weeks including: Therapeutic Exercise, Therapeutic Activities, Transfer Training, Gait Training, Stair Training, Manual Therapy, ADL's, Safety Training, Neuromuscular Re-educ., Pt/Caregiver Training, Bed Mobility Thank you for this referral. If you have any questions, concerns, or comments about this report or plan, please contact me at . Holly Chaudhari, PT, DPT, GCS MTDD
[2018-08-31] MEDS: DOCUSATE SODIUM 100 MG CAP PO SCH (20:42)
[2018-08-31] MEDS: GABAPENTIN 300 MG CAP PO SCH (20:42)
[2018-08-31] MEDS: ACETAMINOPHEN 325 MG TAB PO PRN (20:43)
[2018-08-31] MEDS: INSULIN GLARGINE 100 U/ML 3 ML PEN SUBQ SCH (20:43)
[2018-08-31] MEDS: cloNIDine HCL 0.1 MG TAB PO SCH (20:48)
[2018-09-01 07:15] VITALS: BP 129/72
[2018-09-01] MEDS: INSULIN GLARGINE 100 U/ML 3 ML PEN SUBQ SCH ×2 (09:00→20:30)
[2018-09-01] MEDS: CHLORTHALIDONE 25 MG TAB PO SCH (09:00)
[2018-09-01] MEDS: LISINOPRIL 20 MG TAB PO SCH (09:00)
[2018-09-01] MEDS ORDERED: CYANOCOBALAMIN 100 MCG TAB PO SCH (09:00)
[2018-09-01] MEDS: amLODIPine BESYL(*) 5 MG TAB PO SCH (09:00)
[2018-09-01] MEDS: INSULIN HUM LISPRO 100 UN/ML 3 ML VIAL SUBQ PRN ×4 (09:12→20:31)
[2018-09-01] MEDS: INSULIN HUM LISPRO 100 UN/ML 3 ML VIAL SUBQ SCH ×3 (09:13→17:32)
[2018-09-01] MEDS: POLYETHYLENE GLYCOL 17 GM PKT PO SCH (09:14)
[2018-09-01] MEDS: cloNIDine HCL 0.1 MG TAB PO SCH ×2 (09:15→20:31)
[2018-09-01] MEDS: MULTIVITAMINS TAB PO SCH (09:15)
[2018-09-01] MEDS: ASPIRIN 325 MG TAB PO SCH (09:15)
[2018-09-01] MEDS: CYANOCOBALAMIN 1000 MCG TAB PO SCH (09:15)
[2018-09-01] MEDS: ALLOPURINOL 300 MG TAB PO SCH (09:15)
[2018-09-01] MEDS: CALCIUM CARBONATE 600 MG TAB PO SCH (09:15)
[2018-09-01] MEDS: DOCUSATE SODIUM 100 MG CAP PO SCH ×2 (09:16→20:31)
[2018-09-01] MEDS: ATORVASTATIN 10 MG TAB PO SCH (09:16)
[2018-09-01 15:15] VITALS: BP 148/74
--- NOTE | 2018-09-01 16:56 | NUR ---
Physical Therapy Impression Pt progressing well. Anticipate Pt to reach PT goals within next 2-3 PT visits. Physical Therapy Goals 1. Mod I bed mobility. 2. Mod I transfers. 3. Mod I gait x 500' with RW. 4. Ascend/descend 3 stairs with rails Mod I. 5. Independent with hip precautions. 6. Improve TUG by 2 seconds to <52 seconds. Patient's Goals
[2018-09-01 20:00] VITALS: BP 138/66
[2018-09-01] MEDS: GABAPENTIN 300 MG CAP PO SCH (20:31)
[2018-09-01] MEDS: ACETAMINOPHEN 325 MG TAB PO PRN (22:32)
[2018-09-02 07:15] VITALS: BP 139/82
[2018-09-02] MEDS: INSULIN HUM LISPRO 100 UN/ML 3 ML VIAL SUBQ SCH ×3 (07:43→17:00)
[2018-09-02] MEDS: INSULIN HUM LISPRO 100 UN/ML 3 ML VIAL SUBQ PRN ×4 (07:44→21:09)
[2018-09-02] MEDS: POLYETHYLENE GLYCOL 17 GM PKT PO SCH (09:00)
[2018-09-02] MEDS: CHLORTHALIDONE 25 MG TAB PO SCH (09:00)
[2018-09-02] MEDS: LISINOPRIL 20 MG TAB PO SCH (09:00)
[2018-09-02] MEDS: INSULIN GLARGINE 100 U/ML 3 ML PEN SUBQ SCH ×2 (09:10→21:08)
[2018-09-02] MEDS: DOCUSATE SODIUM 100 MG CAP PO SCH ×2 (09:11→21:10)
[2018-09-02] MEDS: MULTIVITAMINS TAB PO SCH (09:11)
[2018-09-02] MEDS: ASPIRIN 325 MG TAB PO SCH (09:12)
[2018-09-02] MEDS: CALCIUM CARBONATE 600 MG TAB PO SCH (09:12)
[2018-09-02] MEDS: cloNIDine HCL 0.1 MG TAB PO SCH ×2 (09:12→21:10)
[2018-09-02] MEDS: amLODIPine BESYL(*) 5 MG TAB PO SCH (09:12)
[2018-09-02] MEDS: ATORVASTATIN 10 MG TAB PO SCH (09:12)
[2018-09-02] MEDS: ALLOPURINOL 300 MG TAB PO SCH (09:13)
[2018-09-02] MEDS: CYANOCOBALAMIN 1000 MCG TAB PO SCH (09:13)
[2018-09-02 15:05] VITALS: BP 137/82
[2018-09-02 19:18] VITALS: BP 141/77
[2018-09-02] MEDS: GABAPENTIN 300 MG CAP PO SCH (21:10)
[2018-09-03 07:20] VITALS: BP 141/75
[2018-09-03] MEDS: INSULIN HUM LISPRO 100 UN/ML 3 ML VIAL SUBQ SCH ×3 (07:54→17:09)
[2018-09-03] MEDS: INSULIN HUM LISPRO 100 UN/ML 3 ML VIAL SUBQ PRN ×4 (07:55→20:25)
[2018-09-03] MEDS: INSULIN GLARGINE 100 U/ML 3 ML PEN SUBQ SCH ×2 (08:52→20:27)
[2018-09-03] MEDS: amLODIPine BESYL(*) 5 MG TAB PO SCH (08:53)
[2018-09-03] MEDS: CYANOCOBALAMIN 1000 MCG TAB PO SCH (08:55)
[2018-09-03] MEDS: ASPIRIN 325 MG TAB PO SCH (08:55)
[2018-09-03] MEDS: CALCIUM CARBONATE 600 MG TAB PO SCH (08:55)
[2018-09-03] MEDS: CHLORTHALIDONE 25 MG TAB PO SCH (08:55)
[2018-09-03] MEDS: ATORVASTATIN 10 MG TAB PO SCH (08:55)
[2018-09-03] MEDS: MULTIVITAMINS TAB PO SCH (08:56)
[2018-09-03] MEDS: LISINOPRIL 20 MG TAB PO SCH (08:56)
[2018-09-03] MEDS: POLYETHYLENE GLYCOL 17 GM PKT PO SCH (08:56)
[2018-09-03] MEDS: ALLOPURINOL 300 MG TAB PO SCH (08:56)
[2018-09-03] MEDS: cloNIDine HCL 0.1 MG TAB PO SCH ×2 (08:56→20:26)
[2018-09-03] MEDS: DOCUSATE SODIUM 100 MG CAP PO SCH ×2 (08:57→20:26)
--- NOTE | 2018-09-03 10:04 | Medical Nutrition Therapy ---
Nutrition Anthropometrics Height (Inches): 67.00 Height (Calculated Centimeters: [phone] Weight (Pounds): 190 Weight (Calculated Kilograms): 86.183 BMI: 29.8 Jose D Nutrition Score: Adequate Jose D Nutrition Risk Score: 17 Dietary Referral Nutrition Risk Factors: Nutrition Risk Comment: Nutritional Diagnosis Nutritional Risk Acuity 4: Good Appetite, Modified Diet Past Medical History: T2DM Nutritional Acuity: 4-Low Adjusted Energy Requirement Re: 1700 (H-B adj for obesity x 1.1 SF) Protein Requirement: 77 (.9gm/kg) Fluid Requirement: 2150 (25ml/kg) Diet Type: Diabetic Nutrition Intervention: Cont diet as ordered, Encourage intake, HS snack Drug: Diuretics Drug/Nutrition Recommendations: Check Serum K+ Nutrition Monitoring & Eval Nutrition Goals: Eat 75-100% Meal Nutrition Follow-Up: Good Intake RD Patient Assessment Time: [address] Assessment Type: RD Re-Assessment Patient Nutrition Acuity: 4-Low Follow Up Date: Sep 11, 2018 Nutritional Comment: 08/31 Pt admited s/p hip replacement. Pt on diabetic diet and eating 75-100%. RBG 211. Pt on K+ depleting diuretic. Recommend check K+ blood levels. Will cont to monitor and encourage intake. ARABELLA 09/03 Pt cont on ADA diet. Eating 75-100% of meals. PB continue elevated usually in 200's. Pt is taking insulin. Pt cont on K+ depleting duiretic. Recommend check serum K+. Will cont to monitor and enourage intake. KLAUDIA SHARMA Sep 03, 2018 10:04
--- NOTE | 2018-09-03 11:59 | NUR ---
Physical Therapy Impression Pt is doing exceptionally well. Indep. with hip precautions and Mod I with transfers and ambulation. Discussed HH vs OP therapy, pt notes that she feels like HH would be a better option at this time to avoid having to leave her home so often. Pt will have good assist from family. Pt completed four stairs to simulate entry into her home with B handrails, cues for sequencing. Cont. with POC. Physical Therapy Goals 1. Mod I bed mobility. 2. Mod I transfers. 3. Mod I gait x 500' with RW. 4. Ascend/descend 3 stairs with rails Mod I. 5. Independent with hip precautions. 6. Improve TUG by 2 seconds to <52 seconds. Patient's Goals
[2018-09-03 15:45] VITALS: BP 119/60
[2018-09-03 20:05] VITALS: BP 130/66
[2018-09-03] MEDS: GABAPENTIN 300 MG CAP PO SCH (20:26)
[2018-09-03] MEDS: ACETAMINOPHEN 325 MG TAB PO PRN (20:26)
[2018-09-04 07:25] VITALS: BP 115/75
[2018-09-04] MEDS: LISINOPRIL 20 MG TAB PO SCH (08:53)
[2018-09-04] MEDS: INSULIN GLARGINE 100 U/ML 3 ML PEN SUBQ SCH ×2 (08:53→20:28)
[2018-09-04] MEDS: MULTIVITAMINS TAB PO SCH (08:54)
[2018-09-04] MEDS: cloNIDine HCL 0.1 MG TAB PO SCH ×2 (08:54→20:29)
[2018-09-04] MEDS: DOCUSATE SODIUM 100 MG CAP PO SCH ×2 (08:54→20:29)
[2018-09-04] MEDS: CHLORTHALIDONE 25 MG TAB PO SCH (08:54)
[2018-09-04] MEDS: amLODIPine BESYL(*) 5 MG TAB PO SCH (08:55)
[2018-09-04] MEDS: ALLOPURINOL 300 MG TAB PO SCH (08:55)
[2018-09-04] MEDS: CALCIUM CARBONATE 600 MG TAB PO SCH (08:55)
[2018-09-04] MEDS: CYANOCOBALAMIN 1000 MCG TAB PO SCH (08:55)
[2018-09-04] MEDS: ATORVASTATIN 10 MG TAB PO SCH (08:55)
[2018-09-04] MEDS: ASPIRIN 325 MG TAB PO SCH (08:55)
[2018-09-04] MEDS: INSULIN HUM LISPRO 100 UN/ML 3 ML VIAL SUBQ PRN ×4 (08:56→20:29)
[2018-09-04] MEDS: INSULIN HUM LISPRO 100 UN/ML 3 ML VIAL SUBQ SCH ×3 (08:56→17:04)
[2018-09-04] MEDS: POLYETHYLENE GLYCOL 17 GM PKT PO SCH (08:56)
--- NOTE | 2018-09-04 12:00 | NUR ---
Physical Therapy Impression Pt is safe to be Mod I in her room and to/from dining tables on unit. Notified nursing. Pt tolerated ambulation x 750' with FWW. Pt inquiring about HH services upon D/C, educated her that they will be present at her care conference this PM and will answer any questions she may have. Pt notes she does not have any other concerns regarding her plan to D/C home and does not feel any other tasks need to be completed. Pt is safe to D/C home with HH services when cleared by physician. Physical Therapy Goals 1. Mod I bed mobility. 2. Mod I transfers. 3. Mod I gait x 500' with RW. 4. Ascend/descend 3 stairs with rails Mod I. 5. Independent with hip precautions. 6. Improve TUG by 2 seconds to <52 seconds. Patient's Goals
--- NOTE | 2018-09-04 14:44 | NUR ---
Occupational Therapy Impression Mod (I) ambulation [id number] with RW. Excellent adherence to posterior hip precautions. Mod (I) meal prep task with use of RW. Information provided for where to obtain sock aid. Pt declined addressing shower goals, reports confidence with shower set up and (I) with shower this morning. Pt has met all skilled OT goals. Reports no further needs to be addressed or concerns with discharge home. Plan for discharge home tomorrow with services. Occupational Therapy Goals 1) Pt will be Mod (I) UB/LB dressing. 2) Pt will be Mod (I) toilet task. 3) Pt will be Mod (I) grooming/hygiene. 4) Pt will be Mod (I) shower task. 5) Pt will be Mod (I) light meal prep. 6) Pt Mackenzie Index of ADLs will improve by 2 points. Patient's Goal
--- NOTE | 2018-09-04 15:32 | NUR ---
5-day and DC MDS completed with pt. C: 13, D: 05, E: no concerns, Q: plan to DC to community, referral already made for [facility].
--- NOTE | 2018-09-04 16:37 | NUR ---
OCCUPATIONAL THERAPY Dressing Assistance: Mod (I). Information provided for where to obtain sock aid if desired. Dressing Aid Required: Glazier Structural Glass, Sock Aid Bathing Assistance: Mod (I) Bathing Equipment: None Home Assessment: Not Completed Feeding Assistance: Independent Feeding Specialized Equipment: None Toilet Use: Modified I/ AE Verbalizes Needs: Yes Understands Precautions: Yes Cooperative: Yes Family Teaching: No Occupational Therapy Comment: WBAT, Posterior hip precautions.
--- NOTE | 2018-09-04 16:41 | OT ECF NOTE ---
Type of Note: Discharge Note Primary Medical Diagnosis: Generalized weakness s/p L) ARIS. DOS: 08/28/[address] Smith *WBAT, Posterior hip precautions* Pt able to recall 08/19 posterior hip precautions. Occupational Therapy Evaluation Date: 08/31/18 SUBJECTIVE: Prior Hospitalization: [facility] 08/28/18 thru 08/31/18 Prior Level of Function: Independent with all ADLs/IADLs (driving, caring for dog) Prior Living Status: Mobile home Alone Assist by family Community Services: Support adequate No known needs Home Accessibility: Stairs with rails All needs on one level Walk-in shower Equipment Owned: Front wheeled walker Cane Toilet riser Electric Recliner Sergeant Missile Crewman Medical Complications/Past Medical History: HTN, Type 2 DM, arthritis, hx gout, neuropathy, hx UTI. Please refer to EMR for further details. Psychosocial Support: Supportive sisters who reside in [place] Pain Scale (0-10): None reported at time of evaluation OBJECTIVE: Strength: MMT: Right Left Shoulder Flexion WFL WFL Elbow Flexion WFL WFL Wrist Extension WFL WFL Building Construction Inspector WFL WFL (5= normal, 4= good, 3= fair, 2= poor, 1= trace) ROM: Both upper extremities, WFL Sensation: Hx of neuropathy Functional Transfer: Assistive Device: Standard walker Transfer Ability: Modified Independent ADL: Upper body dressing: Assistive device: Upper body dressing ability: Independent Lower body dressing: Assistive device: Sock aid/consumer services advisor Lower body dressing ability: Mod (I) Toileting: Assistive device: Raised toilet seat Toileting ability: Mod (I) Grooming/hygiene: Assistive device: Standing Grooming ability: Independent Bathing: Assistive device: None Bathing ability: Mod (I) Standardized Assessment: Mackenzie Index of Activities of Daily Livin/20 upon initial evaluation (08/31/18). upon discharge (09/04/18). ASSESSMENT: Christy presented to [facility] requiring assist for ADLs/IADLs s/p L) ARIS. At [facility], she was independent with all ADLs/IADLs and resides alone. She has met all skilled OT goals and presents with no further questions/concerns for OT at this time. Problem List/Current Limitations: Pain Decreased activity tolerance Decreased ROM Generalized weakness Short Term Goals: 1) Pt will be Mod (I) UB/LB dressing. GOAL MET 2) Pt will be Mod (I) toilet task. GOAL MET 3) Pt will be Mod (I) grooming/hygiene. GOAL MET 4) Pt will be Mod (I) shower task.GOAL MET 5) Pt will be Mod (I) light meal prep.GOAL MET 6) Pt Mackenzie Index of ADLs will improve by 2 points.GOAL MET Client Architect Goals: Return home with possible HH Patient Goals: Be confident with completing ADLs with adherence to posterior hip precautions Rehabilitation Prognosis: Good Barriers to Discharge: None identified PLAN: The patient will discharge home with HH services and assist from family. Thank you for this referral. If you have any questions, concerns, or comments about this report or plan, please contact me at . Ofelia Schwab MS, OTR/L Occupational Therapist [place]
[2018-09-04 16:50] VITALS: BP 144/83
[2018-09-04] MEDS: GABAPENTIN 300 MG CAP PO SCH (20:29)
[2018-09-05 07:30] VITALS: BP 145/74
[2018-09-05] MEDS: INSULIN HUM LISPRO 100 UN/ML 3 ML VIAL SUBQ SCH ×2 (08:39→12:18)
[2018-09-05] MEDS: INSULIN HUM LISPRO 100 UN/ML 3 ML VIAL SUBQ PRN ×2 (08:40→12:19)
[2018-09-05] MEDS: INSULIN GLARGINE 100 U/ML 3 ML PEN SUBQ SCH (08:40)
[2018-09-05] MEDS: CHLORTHALIDONE 25 MG TAB PO SCH (08:46)
[2018-09-05] MEDS: ASPIRIN 325 MG TAB PO SCH (08:46)
[2018-09-05] MEDS: MULTIVITAMINS TAB PO SCH (08:46)
[2018-09-05] MEDS: ALLOPURINOL 300 MG TAB PO SCH (08:46)
[2018-09-05] MEDS: DOCUSATE SODIUM 100 MG CAP PO SCH (08:46)
[2018-09-05] MEDS: ATORVASTATIN 10 MG TAB PO SCH (08:46)
[2018-09-05] MEDS: CALCIUM CARBONATE 600 MG TAB PO SCH (08:46)
[2018-09-05] MEDS: amLODIPine BESYL(*) 5 MG TAB PO SCH (08:46)
[2018-09-05] MEDS: CYANOCOBALAMIN 1000 MCG TAB PO SCH (08:46)
[2018-09-05] MEDS: cloNIDine HCL 0.1 MG TAB PO SCH (08:47)
[2018-09-05] MEDS: LISINOPRIL 20 MG TAB PO SCH (08:47)
[2018-09-05] MEDS: POLYETHYLENE GLYCOL 17 GM PKT PO SCH (09:00)
[2018-09-05] MEDS ORDERED: ASPI-757 PO (14:09)
--- NOTE | 2018-09-05 14:53 | Hospitalist Depart ---
Discharge Summary Reason for Hosp/Final Diag: (1) Status post hip replacement Status: Acute Hospital Course & Plan: No CV/pulmonary issues. The patient denies a h/o DVT/PE and is on ASA 325mg a day for 30 days for DVT prophylaxis. (2) Insulin-requiring or dependent type II diabetes mellitus Status: Chronic Hospital Course & Plan: Chronically on Toujeo 16 units HS and 14 units AM with Lispro 30/24/48 before meals, respectively. She will continue usual regimen at home. (3) Hypertension Status: Chronic Hospital Course & Plan: Continue chronic chlorthalidone, clonidine, lisinopril, and amlodipine with parameters. Her BP has been well controlled with her meds and will continue as is. (4) Hyperlipidemia Status: Chronic Hospital Course & Plan: Continue chronic atorvastatin. (5) Gout Status: Chronic Hospital Course & Plan: Continue chronic allopurinol. Departure Weight (Pounds): 190 Condition: Improved Discharge: Home, Self Care PT/OT Follow Up For: PT For Strengthening, OT For ADL's, PT Evaluation and Treat, OT Evaluation and Treat Home Health RN Follow Up For: Nursing Assessment Discharge Instructions Home Meds Active Scripts Aspirin (ASPIRIN) 325 Mg Tablet, 325 MG PO QDAY, #21 TAB Prov:DORETHA SCHWARZ CARPENTER ROUGH 09/05/18 Atorvastatin Calcium (LIPITOR) 40 Mg Tablet, 0.5 TAB PO QDAY for 90 Days, #45 TAB 3 Refills Prov:MENDY KAY MD 06/27/18 Allopurinol (ZYLOPRIM) 300 Mg Tablet, 300 MG PO QDAY for 90 Days, #90 TAB 3 Refills Prov:MENDY KAY MD 06/27/18 Gabapentin (GABAPENTIN) 300 Mg Capsule, 300 MG PO QDAY, #90 CAPSULE 3 Refills Prov:MENDY KAY MD 06/27/18 Chlorthalidone (CHLORTHALIDONE) 25 Mg Tab, 25 MG PO QDAY, #90 TAB 3 Refills Prov:MENDY KAY MD 06/13/18 Clonidine Hcl (CATAPRES) 0.1 Mg Tablet, 0.1 MG PO BID, #180 TAB 3 Refills Prov:MENDY KAY MD 06/13/18 Lisinopril (LISINOPRIL) 20 Mg Tablet, 20 MG PO QDAY, #90 TAB 3 Refills Prov:MENDY KAY MD 06/13/18 Amlodipine Besylate (AMLODIPINE BESYLATE) 10 Mg Tablet, 1 TAB PO QDAY, #90 TAB 3 Refills Prov:MENDY KAY MD 06/13/18 Insulin Glargine,Hum.rec.anlog (Toujeo Solostar) 300 Unit/1 Ml Insuln.pen, 14 UNITS SUBQ BID, #9 MISC 3 Refills 14 and 16 Prov:MENDY KAY MD 04/25/18 Insulin Lispro 200 UN/ML PEN (Humalog Kwikpen) 200 Unit/1 Ml Insuln.pen, 30 UNITS SUBQ TID, #9 BOX 3 Refills Prov:MENDY KAY MD 07/25/17 Reported Medications Aspirin (ASPIRIN) 81 Mg Tab.chew, 81 MG PO QDAY, TAB.CHEW Hold baby aspirin while taking Aspirin 325mg, then resume. 08/22/18 Cyanocobalamin (Vitamin B-12) (VITAMIN B-12) 500 Mcg Tablet, 500 MCG PO DAILY 04/27/18 Vitamin B Complex & Vit C No.4 (SUPER B COMPLEX) Unknown Strength Tablet, PO QDAY 01/18/17 Multivitamin (DAILY MULTIPLE VITAMIN) Unknown Strength Tablet, PO DAILY 01/18/17 Calcium Carbonate (CALCIUM) 600 Mg Tablet, 1200 MG PO QDAY 01/18/17 Discontinued Scripts Metformin Hcl (METFORMIN HCL) 1,000 Mg Tablet, 1 TAB PO BID, #180 TAB 3 Refills Prov:MENDY KAY MD 06/27/18 Special Instructions: Follow-up appointment with Dr. Smith on September 10 at 3:10 pm. [place] can be removed by home health from the - (10-14 days post-op) Copies to: MENDY KAY MD ; Venous Thromboembolism Antithrombotics Is Pt On Any Antithrombotics?: No [id number] Certification Face to Face Home Health Certification Patient's Primary Care Provider: Mendy Kay MD Institutional Provider conducted the [id number] encounter. Electronic Undersigning Physician Certifies Home Health. I certify that the patient has been under my care and that I had a [id number] encounter that meets the physician [id number] encounter requirements with this patient. This patient is home-bound due to safety issues and continues to require assistance with ADL's. I certify that based on my findings, that Nursing, Aides and the following Home Health services are medically necessary. Medical Necessity: Nursing, Rehab Date Face to Face Conducted: Sep 05, 2018 DORETHA SCHWARZ Sep 05, 2018 14:53
[2018-09-06] MEDS ORDERED: METF-452 PO (14:22)
--- NOTE | 2018-09-06 19:19 | PT ECF NOTE ---
Type of Note: Discharge Note Primary Medical Diagnosis: s/p L) ARIS 08/28/18 Physical Therapy Evaluation Date: 08/31/18 SUBJECTIVE: Prior Hospitalization: H for L) ARIS Prior Level of Function: I/Mod I with functional mobility Prior Living Status: Mobile home, Alone, Assist by family Community Services: Support adequate, No known needs Home Accessibility: 3 Stairs with rails, All needs on one level, Walk-in shower Equipment Owned: Front wheeled walker, Cane, Toilet riser Medical Complications/Past Medical History: See 51 Give Psychosocial Support: Supportive sisters who live locally Pain Scale (0-10): Pt reports no pain at this time OBJECTIVE: Bed Mobility: Modified indep Assistive device: Transfers: Modified indep Assistive Device: Front wheeled walker Gait: Modified indep Assistive device: Front wheeled walker Timed Up and Go (>12 seconds indicated increased risk for falls): 54 seconds at eval; not re-tested prior to d/c. ASSESSMENT: Pt has progressed rapidly with safe functional mobility and demos understanding of ARIS precautions during ADL's. Pt has chosen to have [facility] therapy initially upon return home. Problem List/Current Limitations: Pain, Decreased activity tolerance, Decreased strength, Decreased ROM, Generalized weakness Short Term Goals: (Met) 1. Mod I bed mobility. 2. Mod I transfers. 3. Mod I gait x 500' with RW. 4. Ascend/descend 3 stairs with rails Mod I. 5. Independent with hip precautions. 6. Improve TUG by 2 seconds to <52 seconds.- Not re-tested prior to d/c. Fpc Goals: Return home Patient Goals: Return home Rehabilitation Prognosis: Good Barriers for Discharge: none identified PLAN: Discharge home with assistance of family and [facility] services for therapy initially. Thank you for this referral. If you have any questions, concerns, or comments about this report or plan, please contact me at . H. Annamaria Mejia, PT, MPT, OMS MTDD
== END 2018-09-05 14:50 | disposition home or self-care (01) | DRG 561 ==
LOC: ECF 10:21
PROVIDERS: ADMIT Internal Medicine; ATTEND Internal Medicine
DX: Z47.1 Aftercare following joint replacement surgery (principal); E11.9 Type 2 diabetes mellitus without complications; I10 Essential (primary) hypertension; Z79.4 Long term (current) use of insulin; Z96.642 Presence of left artificial hip joint; E78.5 Hyperlipidemia, unspecified; M1A.9XX0 Chronic gout, unspecified, without tophus (tophi)
CPT/HCPCS: 36416; 82948; 97161; 97165; J1815

== ENCOUNTER → 2019-01-16 | Outpatient (CLI) | payer MEDICARE ==
[2018-08-29 12:52] VITALS: BMI 29.8
[~2019-01-16] MED LIST changes: -CYAN500T38 PO; +CYAN500T39 PO
[2019-01-16 09:43] LABS: PLATELET COUNT, AUTOMATED 219 K/uL (150-450)
== END ==
LOC: LAB 09:19
PROVIDERS: ATTEND Emergency Medicine
DX: E11.9 Type 2 diabetes mellitus without complications (principal)
CPT/HCPCS: 36415; 82040; 82247; 82310; 82374; 82435; 82465; 82565; 82947; 83036; 83718; 84075; 84132; 84155; 84295; 84450; 84460; 84478; 84520; 85025